=== PATIENT | male | born 1955 | race Caucasian/White ===

== ENCOUNTER 2020-02-05 21:44 | Emergency (ER) | payer OTHER, SELFPAY ==
[2020-02-05 21:47] VITALS: BP 160/101; PULSE 80; RESP 24; TEMP 36.6; O2SAT 99; BMI 37.2
[2020-02-05 22:16] VITALS: BP 145/89; PULSE 74; RESP 16; O2SAT 100
--- NOTE | 2020-02-05 22:22 | XRR_ITS ---
PROCEDURE INFORMATION: Exam: XR Chest, 1 View Exam date and time: 02/05/2020 10:41 PM Age: 64 years old Clinical indication: Angina; Additional info: Chest pain TECHNIQUE: Imaging protocol: XR of the chest Views: 1 view. COMPARISON: No relevant prior studies available. FINDINGS: Lungs: Unremarkable. No consolidation. Pleural space: Unremarkable. No pleural effusion. No pneumothorax. Heart/Mediastinum: Unremarkable. No cardiomegaly. Bones/joints: Unremarkable. XR/XR chest 1V portable [id number] IMPRESSION: No acute findings.
[2020-02-05 22:32] LABS: Basophils # 0.1 10^3/uL (0.0-0.1); Basophils % 0.7 %; Eosinophils # 0.2 10^3/uL (0.0-0.8); Eosinophils % 1.6 %; Hematocrit 45.9 % (42.0-52.0); Hemoglobin 15.8 g/dL (11.7-16.6); Lymphocytes # 1.9 10^3/uL (0.8-4.8); Lymphocytes % 19.7 %; Mean Corpuscular HGB Conc 34.4 g/dL (30.0-36.0); Mean Corpuscular Hemoglobin 29.8 pg (28.0-34.0); Mean Corpuscular Volume 86.6 fL (80-94); Mean Platelet Volume 10.9 fL (7.4-10.4); Monocytes # 0.5 10^3/uL (0.2-0.9); Monocytes % 5.7 %; Neutrophils # 6.8 10^3/uL (1.8-7.7); Nucleated Red Blood Cells % 0 %; Platelet Count 262 10^3/cmm (130-400); Red Cell Distribution Width 12.5 % (12.1-15.1); White Blood Count 9.5 10^3/uL (4.0-10.0)
[2020-02-05 22:48] LABS: Troponin(5th) Baseline 9 ng/L (0-15)
[2020-02-05 23:03] LABS: Lipase 108 U/L (13-60)
[2020-02-05 23:14] LABS: Alanine Aminotransferase 44 U/L (0-41); Albumin Level 4.7 g/dL (3.5-5.2); Alkaline Phosphatase 65 IU/L (40-130); Anion Gap 22.4 (5-19); Aspartate Amino Transferase 30 U/L (0-40); Blood Urea Nitrogen 15 mg/dL (8-23); Carbon Dioxide 20 mmol/L (22-29); Chloride 94 mmol/L (98-107); Globulin 2.3 g/dL (1.3-4.6); Glucose 330 mg/dL (65-115); NT Pro B Type Natriuretic Pept 91 pg/mL (0-125); Osmolality Calculated 285 mOsm/kg (285-295); Potassium 3.4 mmol/L (3.5-5.1); Sodium 133 mmol/L (136-145); Total Bilirubin 0.8 mg/dL (0.15-1.2)
--- NOTE | 2020-02-06 00:22 | ECG_ITS ---
Measurements Intervals [place] Rate: 73 P: 46 WA: 164 QRS: 152 QRSD: 125 T: -18 QT: 414 QTc: 459 SINUS RHYTHM POSSIBLE RIGHT VENTRICULAR HYPERTROPHY [SOME/ALL OF: PROMINENT R IN V1, LATE CORTES TRANSITION, RAD, AHYDE, SSS] MODERATE ST DEPRESSION [0.05+ mV ST DEPRESSION] ABNORMAL QRS-T ANGLE [QRS-T AXIS DIFFERENCE > 60] No previous ECG available for comparison Electronically Signed On 02-06-2020 15:18:19 CDT by Lucy Hayes M.D. [email or web address]
--- NOTE | 2020-02-06 00:30 | ED_ITS ---
Documented by User: Jono Ramirez MD, MSM 02/06/20 00:34 HPI - General Adult General: Chief complaint: General Medical Stated complaint: heart racing Time Seen by Provider: 02/05/20 22:22 Source: patient Mode of arrival: ambulatory Limitations: no limitations History of Present Illness: HPI narrative: Patient symptoms started this morning with a headache that he said felt like a migraine. Headache was in the left temporal region. The headache caused him to be nauseous and he vomited about 3 times. After vomiting headache resolved. He has mild chest pressure. He also said he checked his blood pressure several times and kept fluctuating so he is here to be evaluated Associated symptoms: Reports chest pain; Deny dyspnea, headache(s), nausea, rash, palpitations or vomiting Review of Systems General: Reports: 10 or more systems reviewed and unremarkable except in HPI and below Const: Denies: fever(s), chills or body aches Eyes: Denies: change in vision or blurry vision ENMT: Denies: throat pain, enlarged tonsils, odynophagia, hoarseness, mouth pain or swelling of lips/tongue Card: Reports: chest pain; Denies: palpitations, irregular heart rhythm, edema or swelling of feet/ankles Resp: Denies: dyspnea, productive cough or non-productive cough GI: Denies: abdominal pain, nausea or vomiting : Denies: flank pain, dysuria, urinary frequency, urinary urgency or urinary hesitancy Musc: Denies: neck pain, back pain or extremity swelling Skin/Breast: Denies: rash, pruritus or erythema Neuro: Denies: headache(s), numbness in extremities or weakness in extremities Endo: Denies: polyuria, polydipsia or tired all the time [facility] ED PFSH: Social History Smoking and tobacco status: never smoked Physical Exam Const: COMMON NORMALS: no acute distress, average body habitus, patient oriented x3, no limitations, healthy appearing, alert and well nourished HENMT: COMMON NORMALS: normocephalic, atraumatic and moist oral mucous membranes HEAD & SCALP: normocephalic and atraumatic Neck/C-Spine: COMMON NORMALS: full ROM, supple, no meningeal signs, no JVD and No carotid bruits Resp: COMMON NORMALS: normal respiratory effort, No retractions, No use of accessory muscles, clear to auscultation bilaterally and percussion normal AUSCULTATION: clear to auscultation bilaterally PERCUSSION: percussion normal Cardio: COMMON NORMALS: no JVD, regular rate, regular rhythm, S1 normal heart sound present, S2 normal heart sound present, No gallops present (Cardio), No clicks present (Cardio), No murmurs present (Cardio), No rub (Cardio) and Peripheral pulses 2+ throughout RATE: regular rate RHYTHM: regular rhythm HEART SOUNDS: S1 normal heart sound present and S2 normal heart sound present PERIPHERAL PULSES: Peripheral pulses 2+ throughout GI: COMMON NORMALS: Normal to inspection, nondistended, normoactive bowel sounds present, Soft to palpation, non-tender, No hepatosplenomegaly present, no masses and no bruits PALPATION: Yes Soft to palpation and Yes No hepatosplenomegaly present : COMMON NORMALS: Yes no CVA tenderness BLADDER/KIDNEY EXAM: Yes no CVA tenderness Back/Pelvis: COMMON NORMALS: no CVA tenderness Extremity: COMMON NORMALS: normal to inspection, full ROM, capillary refill normal, no calf tenderness and no pedal edema Neuro: COMMON NORMALS: patient oriented x3 SENSORIUM/ORIENTATION: Yes alert MENINGEAL SIGNS: Yes no meningeal signs Skin: COMMON NORMALS: no rashes or lesions noted, no wounds, turgor normal, no jaundice, no petechiae and no mottling GENERAL SKIN EXAM: no rashes or lesions noted and turgor normal Course Vital Signs: Vital signs: Vital Signs Temperature 97.8 F 02/05/20 21:47 Pulse Rate 72 02/06/20 02:48 Respiratory Rate 16 02/06/20 02:48 Blood Pressure 136/77 02/06/20 02:48 Pulse Oximetry 98 02/06/20 02:48 MDM - General Adult Lab Data: Labs: Lab Results 02/05/20 02/05/20 02/05/20 Range/Units 22:10 22:10 22:10 WBC 9.5 (4.0-10.0) 10^3/ uL RBC 5.30 (4.1-5.3) 10^6/u L Hgb 15.8 (11.7-16.6) g/dL Hct 45.9 (42.0-52.0) % MCV 86.6 (80-94) fL MCH 29.8 (28.0-34.0) pg MCHC 34.4 (30.0-36.0) g/dL RDW 12.5 (12.1-15.1) % Plt Count 262 (130-400) 10^3/c mm MPV 10.9 H (7.4-10.4) fL Neut % (Auto) 72.0 % Lymph % (Auto) 19.7 % [place] % (Auto) 5.7 % Eos % (Auto) 1.6 % Baso % (Auto) 0.7 % Neut # (Auto) 6.8 (1.8-7.7) 10^3/u L Lymph # (Auto) 1.9 (0.8-4.8) 10^3/u L [place] # (Auto) 0.5 (0.2-0.9) 10^3/u L Eos # (Auto) 0.2 (0.0-0.8) 10^3/u L Baso # (Auto) 0.1 (0.0-0.1) 10^3/u L Nucleated RBC % (a uto) 0 % Nucleated RBCs # 0.0 /100WBC Sodium 133 L (136-145) mmol/L Potassium 3.4 L (3.5-5.1) mmol/L Chloride 94 L (98-107) mmol/L Carbon Dioxide 20 L (22-29) mmol/L Anion Gap 22.4 H (5-19) BUN 15 (8-23) mg/dL Creatinine 0.8 (0.7-1.2) mg/dL GFR Calculation 98.0 (90-130) mL/min Glucose 330 H (65-115) mg/dL Calculated Osmolal ity 285 (285-295) mOsm/k g Calcium 10.0 (8.5-10.5) mg/dL Total Bilirubin 0.8 (0.15-1.2) mg/dL AST 30 (0-40) U/L ALT 44 H (0-41) U/L Alkaline Phosphata se 65 (40-130) IU/L Troponin T Baselin e 9 (0-15) ng/L Troponin T 120 Min [place] (0-15) ng/L Delta Troponin T (0-10) ABS# NT-Pro-B Natriuret Pep 91 (0-125) pg/mL Total Protein 7.0 (6.6-8.7) g/dL Albumin 4.7 (3.5-5.2) g/dL Globulin 2.3 (1.3-4.6) g/dL Lipase (13-60) U/L 02/05/20 02/06/20 Range/Units 22:10 00:28 WBC (4.0-10.0) 10^3/ uL RBC (4.1-5.3) 10^6/u L Hgb (11.7-16.6) g/dL Hct (42.0-52.0) % MCV (80-94) fL MCH (28.0-34.0) pg MCHC (30.0-36.0) g/dL RDW (12.1-15.1) % Plt Count (130-400) 10^3/c mm MPV (7.4-10.4) fL Neut % (Auto) % Lymph % (Auto) % [place] % (Auto) % Eos % (Auto) % Baso % (Auto) % Neut # (Auto) (1.8-7.7) 10^3/u L Lymph # (Auto) (0.8-4.8) 10^3/u L [place] # (Auto) (0.2-0.9) 10^3/u L Eos # (Auto) (0.0-0.8) 10^3/u L Baso # (Auto) (0.0-0.1) 10^3/u L Nucleated RBC % (a uto) % Nucleated RBCs # /100WBC Sodium (136-145) mmol/L Potassium (3.5-5.1) mmol/L Chloride (98-107) mmol/L Carbon Dioxide (22-29) mmol/L Anion Gap (5-19) BUN (8-23) mg/dL Creatinine (0.7-1.2) mg/dL GFR Calculation (90-130) mL/min Glucose (65-115) mg/dL Calculated Osmolal ity (285-295) mOsm/k g Calcium (8.5-10.5) mg/dL Total Bilirubin (0.15-1.2) mg/dL AST (0-40) U/L ALT (0-41) U/L Alkaline Phosphata se (40-130) IU/L Troponin T Baselin e (0-15) ng/L Troponin T 120 Min [place] 9.51 (0-15) ng/L Delta Troponin T 0.51 (0-10) ABS# NT-Pro-B Natriuret Pep (0-125) pg/mL Total Protein (6.6-8.7) g/dL Albumin (3.5-5.2) g/dL Globulin (1.3-4.6) g/dL Lipase 108 H (13-60) U/L Discharge Plan Discharge Patient Disposition: Home, Self-Care Clinical Impression: Headache Qualifiers: Headache type: unspecified Headache chronicity pattern: acute headache Intractability: not intractable Qualified Code(s): R51 - Headache Chest pain Qualifiers: Chest pain type: unspecified Qualified Code(s): R07.9 - Chest pain, unspecified Condition: Stable Prescriptions: No Action Unable to Assess RF: 0 Discharge Orders: Discharge Order (Routine); Ordered 02/06/20 Ordered By: Nguyễn Hayden Referrals: BLANCA GALO DO [Primary Care Provider] - 4-7 days Discharge Diet: Usual diet Discharge Activity: Increase activity as tolerated Patient Instructions: Chest Pain (ED), Acute Headache (ED) Discharge Date/Time: 02/06/20 02:50 Coding Level of Care Code ED Network Specialist for Chg Fwd Exam Comprehensive Documented by User: Nguyễn Hayden DO 02/06/20 17:22 HPI - General Adult General: Chief complaint: General Medical Stated complaint: heart racing Time Seen by Provider: 02/05/20 22:22 PFSH ED PFSH: Social History Smoking and tobacco status: never smoked Course Vital Signs: Vital signs: Vital Signs Temperature 97.8 F 02/05/20 21:47 Pulse Rate 72 02/06/20 02:48 Respiratory Rate 16 02/06/20 02:48 Blood Pressure 136/77 02/06/20 02:48 Pulse Oximetry 98 02/06/20 02:48 MDM - General Adult MDM Narrative: Medical decision making narrative: Old male who presents with multiple symptoms. He was checked out to me by Dr. Ramirez. His headache and other symptoms are resolved. He was left with a dull chest pressure/epigastric pressure. His first troponin was negative. His second troponin was negative. His EKG did not change either. With improvement in his symptoms, he will be allowed discharge. Lab Data: Labs: Lab Results 02/05/20 02/05/20 02/05/20 Range/Units 22:10 22:10 22:10 WBC 9.5 (4.0-10.0) 10^3/ uL RBC 5.30 (4.1-5.3) 10^6/u L Hgb 15.8 (11.7-16.6) g/dL Hct 45.9 (42.0-52.0) % MCV 86.6 (80-94) fL MCH 29.8 (28.0-34.0) pg MCHC 34.4 (30.0-36.0) g/dL RDW 12.5 (12.1-15.1) % Plt Count 262 (130-400) 10^3/c mm MPV 10.9 H (7.4-10.4) fL Neut % (Auto) 72.0 % Lymph % (Auto) 19.7 % [place] % (Auto) 5.7 % Eos % (Auto) 1.6 % Baso % (Auto) 0.7 % Neut # (Auto) 6.8 (1.8-7.7) 10^3/u L Lymph # (Auto) 1.9 (0.8-4.8) 10^3/u L [place] # (Auto) 0.5 (0.2-0.9) 10^3/u L Eos # (Auto) 0.2 (0.0-0.8) 10^3/u L Baso # (Auto) 0.1 (0.0-0.1) 10^3/u L Nucleated RBC % (a uto) 0 % Nucleated RBCs # 0.0 /100WBC Sodium 133 L (136-145) mmol/L Potassium 3.4 L (3.5-5.1) mmol/L Chloride 94 L (98-107) mmol/L Carbon Dioxide 20 L (22-29) mmol/L Anion Gap 22.4 H (5-19) BUN 15 (8-23) mg/dL Creatinine 0.8 (0.7-1.2) mg/dL GFR Calculation 98.0 (90-130) mL/min Glucose 330 H (65-115) mg/dL Calculated Osmolal ity 285 (285-295) mOsm/k g Calcium 10.0 (8.5-10.5) mg/dL Total Bilirubin 0.8 (0.15-1.2) mg/dL AST 30 (0-40) U/L ALT 44 H (0-41) U/L Alkaline Phosphata se 65 (40-130) IU/L Troponin T Baselin e 9 (0-15) ng/L Troponin T 120 Min [place] (0-15) ng/L Delta Troponin T (0-10) ABS# NT-Pro-B Natriuret Pep 91 (0-125) pg/mL Total Protein 7.0 (6.6-8.7) g/dL Albumin 4.7 (3.5-5.2) g/dL Globulin 2.3 (1.3-4.6) g/dL Lipase (13-60) U/L 02/05/20 02/06/20 Range/Units 22:10 00:28 WBC (4.0-10.0) 10^3/ uL RBC (4.1-5.3) 10^6/u L Hgb (11.7-16.6) g/dL Hct (42.0-52.0) % MCV (80-94) fL MCH (28.0-34.0) pg MCHC (30.0-36.0) g/dL RDW (12.1-15.1) % Plt Count (130-400) 10^3/c mm MPV (7.4-10.4) fL Neut % (Auto) % Lymph % (Auto) % [place] % (Auto) % Eos % (Auto) % Baso % (Auto) % Neut # (Auto) (1.8-7.7) 10^3/u L Lymph # (Auto) (0.8-4.8) 10^3/u L [place] # (Auto) (0.2-0.9) 10^3/u L Eos # (Auto) (0.0-0.8) 10^3/u L Baso # (Auto) (0.0-0.1) 10^3/u L Nucleated RBC % (a uto) % Nucleated RBCs # /100WBC Sodium (136-145) mmol/L Potassium (3.5-5.1) mmol/L Chloride (98-107) mmol/L Carbon Dioxide (22-29) mmol/L Anion Gap (5-19) BUN (8-23) mg/dL Creatinine (0.7-1.2) mg/dL GFR Calculation (90-130) mL/min Glucose (65-115) mg/dL Calculated Osmolal ity (285-295) mOsm/k g Calcium (8.5-10.5) mg/dL Total Bilirubin (0.15-1.2) mg/dL AST (0-40) U/L ALT (0-41) U/L Alkaline Phosphata se (40-130) IU/L Troponin T Baselin e (0-15) ng/L Troponin T 120 Min [place] 9.51 (0-15) ng/L Delta Troponin T 0.51 (0-10) ABS# NT-Pro-B Natriuret Pep (0-125) pg/mL Total Protein (6.6-8.7) g/dL Albumin (3.5-5.2) g/dL Globulin (1.3-4.6) g/dL Lipase 108 H (13-60) U/L Discharge Plan Discharge Patient Disposition: Home, Self-Care Clinical Impression: Headache Qualifiers: Headache type: unspecified Headache chronicity pattern: acute headache Intractability: not intractable Qualified Code(s): R51 - Headache Chest pain Qualifiers: Chest pain type: unspecified Qualified Code(s): R07.9 - Chest pain, unspecified Condition: Stable Prescriptions: No Action Unable to Assess RF: 0 Discharge Orders: Discharge Order (Routine); Ordered 02/06/20 Ordered By: Nguyễn Hayden Referrals: BLANCA GALO DO [Primary Care Provider] - 4-7 days Discharge Diet: Usual diet Discharge Activity: Increase activity as tolerated Patient Instructions: Chest Pain (ED), Acute Headache (ED) Discharge Date/Time: 02/06/20 02:50 Coding Level of Care Code ED Network Specialist for Chg Fwd Exam Comprehensive
[2020-02-06 01:00] VITALS: BP 133/80; PULSE 74; RESP 16; O2SAT 98
[2020-02-06 01:07] LABS: Troponin 5 2HR 9.51 ng/L (0-15); Troponin 5 2HR Delta 0.51 ABS# (0-10)
[2020-02-06 02:00] VITALS: BP 138/80; PULSE 70; RESP 16; O2SAT 97
[2020-02-06 02:48] VITALS: BP 136/77; PULSE 72; RESP 16; O2SAT 98
== END 2020-02-06 02:50 | disposition home or self-care (01) ==
PROVIDERS: Family Medicine; Emergency Provider Emergency Medicine; PCP Internal Medicine
DX: R51 Headache (principal); R07.9 Chest pain, unspecified
CPT/HCPCS: 12345; 71045; 80053; 83690; 83880; 84484; 85025; 93005; 99283; 99284

== ENCOUNTER → 2021-03-24 12:42 | Outpatient (BNVA) | payer OTHER, SELFPAY | PROVIDERS: PCP Internal Medicine; Visit Provider Nurse Practitioner | DX: G31.84 Mild cognitive impairment of uncertain or unknown etiology (principal); F41.9 Anxiety disorder, unspecified | CPT/HCPCS: 96116; 99204 ==

== ENCOUNTER 2021-03-24 14:33 | Outpatient (CLI) | payer OTHER, SELFPAY ==
[2021-03-24 16:06] LABS: Vitamin B12 822 pg/mL (232-1245)
[2021-03-24 16:27] LABS: Rapid Plasma Reagin Syphilis Nonreactive (Nonreactive); Thyroid Stimulating Hormone 1.51 uIU/mL (0.27-4.20)
[2021-03-24 18:31] LABS: Erythrocyte Sedimentation Rate 9 mm/hr (0-10)
[2021-03-25 19:24] LABS: Folate Level 14.9 ng/mL (4.5-32.2)
[2021-03-27 10:58] LABS: Lymes IGG WB <0.90 index
[2021-03-28 08:58] LABS: Methylmalonic Acid 226 nmol/L (87-318)
== END 2021-03-24 14:34 | disposition home or self-care (01) ==
PROVIDERS: PCP Internal Medicine; Visit Provider Nurse Practitioner
DX: G31.84 Mild cognitive impairment of uncertain or unknown etiology (principal)
CPT/HCPCS: 36415; 82607; 82746; 83921; 84260; 84443; 85651; 86140; 86431; 86592; 86617

== ENCOUNTER 2021-07-14 17:04 | Emergency (ER) | payer OTHER, SELFPAY ==
--- NOTE | 2021-07-14 17:37 | CTR_ITS ---
PROCEDURE INFORMATION: Exam: CT Head Without Contrast Exam date and time: 07/14/2021 5:37 PM Age: 66 years old Clinical indication: Injury or trauma; Blunt trauma (contusions or hematomas) and laceration; Without loss of consciousness; Without residual foreign body; Scalp; Patient HX: PT was pulling a t post out of the ground and was hit on top of the head - denies loc has lac to top of head; Additional info: Head injury TECHNIQUE: Imaging protocol: Computed tomography of the head without contrast. Radiation optimization: All CT scans at this facility use at least one of these dose optimization techniques: automated exposure control; mA and/or kV adjustment per patient size (includes targeted exams where dose is matched to clinical indication); or iterative reconstruction. COMPARISON: No relevant prior studies available. RADIATION DOSE METRICS: Total DLP (mGy-cm): 1042.93 FINDINGS: Brain: No hemorrhage. Unremarkable white matter. No mass effect. Cerebral ventricles: No ventriculomegaly. Paranasal sinuses: Mild bilateral ethmoid sinusitis is appreciated Mastoid air cells: Visualized mastoid air cells are well aerated. Bones/joints: Unremarkable. No acute fracture. Soft tissues: Mild soft tissue swelling and a tiny laceration are present in the right frontal scalp CT/CT head wo con* [id number] IMPRESSION: No acute intracranial abnormality. Mild sinusitis. Radiation Dose CTDIVOL = (mGy): DLP = 1042.93 (mGy-cm)
[2021-07-14 17:38] VITALS: BP 162/92; PULSE 60; RESP 16; TEMP 36.8; O2SAT 95
--- NOTE | 2021-07-14 20:26 | W.ED.HEATRA ---
HPI - Head Injury General: Chief complaint: Head Injury Stated complaint: HEAD INJURY/SENT FROM [facility] Time Seen by Provider: 07/14/21 20:26 History of Present Illness: HPI Narrative: 66-year-old male patient comes over to the ER for evaluation of scalp injury. Patient reports he was working on some fencing when a board came back and hit him across the top of his head. Patient denies any loss of consciousness. Patient appears well. Patient is alert oriented responds appropriate to questions. Patient appears in mild pain. Review of Systems General: Reports: 10 or more systems reviewed and unremarkable except in HPI and below Skin/Breast: Reports: other (Head and scalp injury) [facility]: Medical History (Updated 07/14/21 @ 20:43 by DANNIELLE Weinstein) Mild cognitive impairment Social History Smoking and tobacco status: never smoked History of recent travel: No Physical Exam Const: COMMON NORMALS: no acute distress and patient oriented x3 GENERAL APPEARANCE: cooperative HENMT: COMMON NORMALS: normocephalic, TM's normal bilaterally and Normal external nose present HEAD & SCALP: normocephalic and other (3 cm superficial laceration to the frontal scalp) NOSE: Normal external nose present TYMPANIC MEMBRANE: TM's normal bilaterally MOUTH: Normal oral and palatal mucosa present THROAT: posterior oropharynx normal Eye: GENERAL EYE: appearance normal, both eyes and all related structures Neck/C-Spine: COMMON NORMALS: full ROM Chest: COMMONS NORMALS: normal inspection of the chest Resp: COMMON NORMALS: normal respiratory effort EFFORT & INSPECTION: Yes able to speak in complete sentences Cardio: COMMON NORMALS: regular rate and regular rhythm RATE: regular rate RHYTHM: regular rhythm GI: COMMON NORMALS: non-tender Back/Pelvis: COMMON NORMALS: thoracic and lumbar spine normal to inspection Extremity: COMMON NORMALS: normal to inspection Neuro: COMMON NORMALS: patient oriented x3 and moves all extremities Psych: COMMON NORMALS: mental status grossly normal and cooperative Skin: COMMON NORMALS: no rashes or lesions noted GENERAL SKIN EXAM: no rashes or lesions noted Course Vital Signs: Vital signs: Vital Signs Temperature 98.2 F 07/14/21 17:38 Pulse Rate 60 07/14/21 17:38 Respiratory Rate 16 07/14/21 17:38 Blood Pressure 162/92 07/14/21 17:38 Pulse Oximetry 95 07/14/21 17:38 MDM - Head Injury MDM Narrative: Medical decision making narrative: Absent for evaluation of head injury. On exam patient has no focal neural deficits. Patient has a 3 cm vertical frontal superficial laceration to the scalp. Patient ambulates without difficulty. Patient moves all extremities well. Patient denies superior headache. Vital signs are normal. Differential diagnosis includes but not limited to fracture of the skull, concussion, intracranial bleeding, scalp laceration. CT of the head was negative for any fracture or intracranial bleeding. Reviewed exam with patient and spouse with recommendations for dressing and monitoring site for signs of infection. Patient and spouse reported understanding and agreed to plan. Reviewed post head injury instructions with patient and spouse. They reported understanding. Discharge Plan Discharge Patient Disposition: Home Clinical Impression: Head injury Qualifiers: Encounter type: initial encounter Qualified Code(s): S09.90XA - Unspecified injury of head, initial encounter Superficial laceration of scalp Qualifiers: Encounter type: initial encounter Qualified Code(s): S01.01XA - Laceration without foreign body of scalp, initial encounter Condition: Stable Prescriptions: No Action losartan 100 mg tablet 100 mg PO DAILY RF: 0 metformin 500 mg tablet 500 mg PO BID RF: 0 metoprolol succinate 100 mg tablet extended release 24 hr 100 mg PO BID RF: 0 Trulicity 1.5 mg/0.5 mL pen injector SUBCUT RF: 0 multivitamin Tablet 1 tab PO DAILY RF: 0 amlodipine 2.5 mg tablet 2.5 mg PO BID RF: 0 hydrochlorothiazide 25 mg tablet 25 mg PO DAILY RF: 0 pantoprazole 40 mg tablet,delayed release (DR/EC) 40 mg PO DAILY RF: 0 omega-3 fatty acids [Fish Oil Concentrate] 1,000 mg capsule 1,000 mg PO DAILY RF: 0 red yeast rice 600 mg capsule 600 mg PO DAILY RF: 0 Discharge Orders: Discharge ED (Routine); Ordered 07/14/21 Ordered By: Silver Elmore Referrals: Deja Wells DO [Primary Care Provider] - Discharge Diet: Usual diet Discharge Activity: Increase activity as tolerated Patient Instructions: Head Injury (ED), Opioid Safety Activity Restrictions/Additional Instructions: Activity as tolerated. Drink plenty of water. Use acetaminophen or ibuprofen for pain. Follow-up with primary care in 3 days for recheck. Return to the ER for worsening symptoms such as severe headache that you are unable to control, persistent nausea and vomiting, or new concerns. Keep wound clean and dry for the next 48 hours. After that gently wash the wound with mild soap and water and dry thoroughly. Monitor wound for signs of infection such as increased redness, heat, or purulent drainage. Coding Level of Care Code ED [employer] Consultant for Oscar Aguayo
[2021-07-14] MEDS: tetanus-dipt-pertussis 0.5 mL SDV IM (20:55)
== END 2021-07-14 20:57 | disposition home or self-care (01) ==
PROVIDERS: Emergency Provider Nurse Practitioner Family; PCP Family Medicine
DX: S01.01XA Laceration without foreign body of scalp, initial encounter (principal); S09.90XA Unspecified injury of head, initial encounter; Z79.84 Long term (current) use of oral hypoglycemic drugs; W20.8XXA Other cause of strike by thrown, projected or falling object, initial encounter; Z23 Encounter for immunization
CPT/HCPCS: 70450; 90471; 90715; 99283

== ENCOUNTER → 2022-03-28 09:42 | Outpatient (BNVA) | payer MEDICARE, SELFPAY | PROVIDERS: PCP Family Medicine; Visit Provider Surgery | DX: K92.1 Melena (principal) | CPT/HCPCS: 99203 ==

== ENCOUNTER 2022-06-15 05:58 | Day surgery (SDC) | payer MEDICARE, SELFPAY ==
[2022-06-12 10:09] VITALS: BMI 34.7
[2022-06-15 06:23] VITALS: BP 132/79; PULSE 73; RESP 18; TEMP 36.2; O2SAT 97
[2022-06-15] MEDS: sodium chloride 0.9% 1,000 ML 30 ML IV (06:28)
[2022-06-15 06:32] LABS: Glucose Point of Care 145 mg/dL (70-110)
--- NOTE | 2022-06-15 06:50 | P.ANESASSM_ITS ---
Pre-Anesthetic Assessment Height/Weight: Height 1.75 m Weight 106.594 kg Temp Pulse Resp BP Pulse Ox O2 Del Method 97.1 F L 73 18 132/79 97 06/15/22 06:23 06/15/22 06:23 06/15/22 06:23 06/15/22 06:23 06/15/22 06:23 06/15/22 06:23 Preop Diagnosis: Hematochezia Operation Date: 06/15/22 07:30 Proposed Procedures p Colonoscopy 38505,K92.1(Not Applicable) - Jhonathan Andrew DO Familial anesthetic complications: none Was Beta Isis taken within 24 hours: N/A Last intake: Intake Last Liquid Date 06/14/22 Last Liquid Time 22:30 Last Solid Date 06/13/22 Last Solid Time 20:00 Social Alcohol (1x every few weeks) and No tobacco Airway Submandibular: within normal limits Cervical ROM: within normal limits Mallampati: Class I Dentition: full Pulmonary Sleep Apnea (reports hx of JO-ANN non-compliant) and None reported CV/HEM Hypertension and Myocardial Infarction (EKG indicates possible old NM) 2004- stress test enlarged heart patient unsure of results. None reported Hepatic None reported GI Gastroesophageal Reflux Disease Metabolic Diabetes Mellitus and Hyperlipidemia [facility] [place] None reported Neuropsych None reported Anesthetic Plan ASA status: 3 Anesthesia: MAC Medications/Allergies Home Medications Medication Instructions Recorded Confirmed Last Taken Type amlodipine 2.5 mg tablet 5 mg PO BID 03/24/21 06/12/22 06/15/22 History dulaglutide 1.5 mg/0.5 mL 4.5 mg SUBCUT .WEEKLY 03/24/21 06/15/22 06/12/22 History subcutaneous pen injector (Trulicity) hydrochlorothiazide 25 mg tablet 25 mg PO DAILY 03/24/21 06/12/22 06/14/22 History losartan 100 mg tablet 100 mg PO DAILY 03/24/21 06/12/22 06/14/22 History metoprolol succinate 100 mg 100 mg PO BID 03/24/21 06/12/22 06/15/22 History tablet,extended release 24 hr multivitamin 1 tab PO DAILY 03/24/21 06/12/22 06/14/22 History pantoprazole 40 mg tablet,delayed 40 mg PO DAILY 03/24/21 06/15/22 06/12/22 History release red yeast rice 600 mg capsule 600 mg PO DAILY 03/24/21 06/12/22 06/14/22 History allopurinol 100 mg tablet 100 mg PO DAILY 03/28/22 06/12/22 06/14/22 History metformin 500 mg tablet 850 mg PO BID 03/28/22 06/12/22 06/14/22 History Allergies Allergy/AdvReac Type Severity Reaction Status Date / Time prednisone Allergy Unknown Verified 03/28/22 09:52 Current Medications Generic Name Dose Route Start Last Admin Trade Name Freq PRN Reason Stop Dose Admin Sodium Chloride 1,000 mls @ 30 mls/hr 06/15/22 06:15 06/15/22 06:28 Sodium Chloride 0.9% IV 06/16/22 06:14 30 mls/hr .Q24H TIFFANY Administration PFSH Anesthesia Medical History Mild cognitive impairment Social History Smoking and tobacco status: never smoked History of recent travel: No Data Anesthesia Cardiac Studies: No Data to Display
--- NOTE | 2022-06-15 07:04 | PM.HP ---
Providers/Chief Complaint Primary Care Provider: Howie Santiago MD Chief Complaint: Hematochezia History of Present Illness Julio Penny is a 67 year old male here for colonoscopy Medications/Allergies Home Medications Medication Instructions Recorded Confirmed Last Taken Type amlodipine 2.5 mg tablet 5 mg PO BID 03/24/21 06/12/22 06/15/22 History dulaglutide 1.5 mg/0.5 mL 4.5 mg SUBCUT .WEEKLY 03/24/21 06/15/22 06/12/22 History subcutaneous pen injector (Trulicity) hydrochlorothiazide 25 mg tablet 25 mg PO DAILY 03/24/21 06/12/22 06/14/22 History losartan 100 mg tablet 100 mg PO DAILY 03/24/21 06/12/22 06/14/22 History metoprolol succinate 100 mg 100 mg PO BID 03/24/21 06/12/22 06/15/22 History tablet,extended release 24 hr multivitamin 1 tab PO DAILY 03/24/21 06/12/22 06/14/22 History pantoprazole 40 mg tablet,delayed 40 mg PO DAILY 03/24/21 06/15/22 06/12/22 History release red yeast rice 600 mg capsule 600 mg PO DAILY 03/24/21 06/12/22 06/14/22 History allopurinol 100 mg tablet 100 mg PO DAILY 03/28/22 06/12/22 06/14/22 History metformin 500 mg tablet 850 mg PO BID 03/28/22 06/12/22 06/14/22 History Allergies Allergy/AdvReac Type Severity Reaction Status Date / Time prednisone Allergy Unknown Verified 03/28/22 09:52 PFSH Acute PFSH: Medical History Mild cognitive impairment Social History Smoking and tobacco status: never smoked History of recent travel: No Vitals/I&O/Wt Last Vital Signs Temp 97.1 F L 06/15/22 06:23 Pulse 73 06/15/22 06:23 Resp 18 06/15/22 06:23 BP 132/79 06/15/22 06:23 Pulse Ox 97 06/15/22 06:23 O2 Del Method 06/15/22 06:23 A&P Assessment and plan (1) Hematochezia: Plan Colonoscopy Attestations Medical Necessity Statement*: Home Coding Level of Care Code Acute Oxygen Tank Filler for g Fwd Diagnoses Hematochezia K92.1
[2022-06-15 08:06] VITALS: BP 109/69; PULSE 76; RESP 12; TEMP 36.1; O2SAT 94
[2022-06-15 08:16] VITALS: BP 109/77; PULSE 79; RESP 14; O2SAT 94
[2022-06-15 08:27] VITALS: BP 116/79; PULSE 70; RESP 16; O2SAT 94
--- NOTE | 2022-06-15 13:59 | ANE.PACU2 ---
Inpatient post-anesthesia follow up: Airway intact: Yes Vital signs: Temperature 97 F Pulse Rate 70 Respiratory Rate 16 Blood Pressure 116/79 Pulse Oximetry 94 Oxygen Delivery Me thod Room Air Oxygen Flow Rate Fraction of Inspir ed Oxygen Hydration adequate: Yes Nausea and vomiting: No Pain level: 1 Mental status: Baseline
== END 2022-06-15 08:40 | disposition home or self-care (01) ==
PROVIDERS: PCP Family Medicine; Visit Provider Surgery
PROC: 0DJD8ZZ Inspection of Lower Intestinal Tract, Via Natural or Artificial Opening Endoscopic (ICD-10-PCS; CPT 45378; principal; 2022-06-15 07:30)
DX: K92.1 Melena (principal); K57.30 Diverticulosis of large intestine without perforation or abscess without bleeding; K52.9 Noninfective gastroenteritis and colitis, unspecified; K64.4 Residual hemorrhoidal skin tags; K63.5 Polyp of colon; G47.33 Obstructive sleep apnea (adult) (pediatric); Z91.199 Patient's noncompliance with other medical treatment and regimen due to unspecified reason; I10 Essential (primary) hypertension; I25.2 Old myocardial infarction; K21.9 Gastro-esophageal reflux disease without esophagitis; E11.9 Type 2 diabetes mellitus without complications; E78.5 Hyperlipidemia, unspecified
CPT/HCPCS: 36416; 45380; 45385; 82962; 88305; J2704; J7030

== ENCOUNTER → 2022-06-22 12:00 | Outpatient (BNVA) | payer MEDICARE, SELFPAY | PROVIDERS: PCP Family Medicine; Visit Provider Surgery | DX: K64.4 Residual hemorrhoidal skin tags (principal) | CPT/HCPCS: 99212 ==

== ENCOUNTER 2024-01-09 14:03 | Outpatient (CLI) | payer MEDICARE, SELFPAY ==
--- NOTE | 2024-01-09 14:09 | USCV_ITS ---
Julio Penny Age: 68 Gender: M : 1955 Exam Date: 01/09/2024 14:26 Ordering Phys: Howie Santiago MD Technologist: Jessie Paz Exam Location: [facility] – [place] Indication: sob BP: / HR: 72 Rhythm: Sinus Technical Quality: Adequate MEASUREMENTS (Male / Female) Normal Values 2D ECHO LV Diastolic Diameter PLAX 3.6 cm 4.2 - 5.9 / 3.9 - 5.3 cm IVS Diastolic Thickness 1.4 cm 0.6 - 1.0 / 0.6 - 0.9 cm IVS Systolic Thickness 1.1 cm LVPW Diastolic Thickness 1.4 cm 0.6 - 1.0 / 0.6 - 0.9 cm LVPW Systolic Thickness 1.3 cm LVOT Diameter 2.0 cm LV Ejection Fraction 2D Teich 57.8 % LV Ejection Fraction MOD 2C 63.1 % LV Ejection Fraction 2C AL 66.5 % LA Diameter 2.8 cm RA Systolic Volume 4C AL 15.1 ml RA Systolic Volume 4C MOD 14.4 ml LA Sys Volume AL 27.9 cm cubed LA Sys Volume Index AL 12.4 cm cubed/m squared Aorta at Sinotubular Diameter 2.9 cm IVC Diameter 1.3 cm M-MODE LA Ao Ratio MM 1.2 AV Cusp Separation MM 2.2 cm DOPPLER AV Peak Velocity 128.0 cm/s LVOT Peak Velocity 97.0 cm/s AV Area Cont Eq vti 2.6 cm squared AV Area Cont Eq pk 2.5 cm squared MV Area PHT 5.0 cm squared Mitral E to A Ratio 0.7 TV Peak Velocity 214.5 cm/s TR Peak Velocity 213.0 cm/s TR Peak Gradient 18.1 mmHg TR Mean Velocity 183.0 cm/s TR Mean Gradient 14.9 mmHg TR Velocity Time Integral 72.4 cm TV Peak E Velocity 46.0 cm/s Right Atrial Pressure 3.0 mmHg Pulmonary Artery Systolic Pressu 21.1 mmHg PV Peak Velocity 81.0 cm/s FINDINGS Left Ventricle Normal left ventricular size and systolic function, EF 66%.mild left ventricular hypertrophy. No regional wall motion abnormalities. Grade I/IV diastolic dysfunction (abnormal relaxation filling pattern), normal to mildly elevated filling pressures. Right Ventricle The right ventricle is normal in size and function. Right Atrium The right atrium is normal in size. Left Atrium The left atrium is normal in size. Mitral Valve No gross abnormalities noted Aortic Valve No gross abnormalities noted. Appears to be tricuspid Tricuspid Valve No gross abnormalities noted Pulmonic Valve No gross abnormalities noted Pericardium Normal pericardium without effusion. Aorta Normal ascending aorta dimension. IVC The inferior vena cava appears normal. CONCLUSIONS Normal left ventricular size and systolic function, EF 66%.mild left ventricular hypertrophy. No regional wall motion abnormalities. Grade I/IV diastolic dysfunction (abnormal relaxation filling pattern), normal to mildly elevated filling pressures. Normal cardiac chamber sizes. No significant stenotic or regurgitant lesions. There is no pericardial effusion. There are no intracardiac masses. No similar previous studies are available for comparison Dr Lucy Hayes MD FACC (Electronically Signed) Final Date: 11 Jan 2024 10:26 S
== END 2024-01-09 14:04 | disposition home or self-care (01) ==
LOC: RAD 14:04
PROVIDERS: PCP Family Medicine; Visit Provider Family Medicine
DX: I42.1 Obstructive hypertrophic cardiomyopathy (principal)
CPT/HCPCS: 93306

== ENCOUNTER → 2024-04-08 11:06 | Outpatient (BNVA) | payer MEDICARE, SELFPAY | PROVIDERS: PCP Family Medicine; Referring Provider Family Medicine; Visit Provider Internal Medicine Cardiovascular Disease | DX: R07.9 Chest pain, unspecified (principal); I42.2 Other hypertrophic cardiomyopathy; I10 Essential (primary) hypertension; R00.1 Bradycardia, unspecified; I45.9 Conduction disorder, unspecified | CPT/HCPCS: 93005; 99204 ==

== ENCOUNTER → 2024-06-24 12:43 | Outpatient (BNVA) | payer MEDICARE, SELFPAY | PROVIDERS: PCP Family Medicine; Referring Provider Family Medicine; Visit Provider Surgery | DX: K21.9 Gastro-esophageal reflux disease without esophagitis (principal) | CPT/HCPCS: 99203; 99214 ==

== ENCOUNTER 2024-06-27 15:23 | Emergency (ER) | payer MEDICARE, SELFPAY ==
[2024-06-27 15:32] VITALS: BP 127/85; PULSE 79; RESP 17; TEMP 36.8; O2SAT 95; BMI 33.2
--- NOTE | 2024-06-27 16:24 | XRR_ITS ---
PROCEDURE INFORMATION: Exam: XR Left Hand Exam date and time: 06/27/2024 4:59 PM Age: 69 years old Clinical indication: Pain; Hand; Left; Patient HX: Small puncture wound to end of lt thumb; Possible foreign body from nail gun per PT TECHNIQUE: Imaging protocol: Radiologic exam of the left hand. Views: 3 or more views. COMPARISON: No relevant prior studies available. FINDINGS: Bones/joints: Normal. Soft tissues: Normal. No radiopaque foreign body. XR/XR hand LT min 3V* [id number] IMPRESSION: No acute findings. No radiopaque foreign body.
--- NOTE | 2024-06-27 17:39 | W.ED.WOUNDLC ---
HPI - Wound/Laceration General: Chief Complaint: Wound/Laceration Stated Complaint: pucture wond left hand Time Seen by Provider: 06/27/24 17:28 History of Present Illness: 69-year-old male was working at home using an 18-gauge Froy Chavo he felt a sharp sensation in his left thumb he thinks he may have gotten a Froy in the finger. He also felt sensations left index finger with there is only a small superficial wound there is no evidence of active bleeding no palpable foreign body. Patient states his tetanus is up-to-date Related Data Home Medications Medication Instructions Recorded Confirmed amlodipine 2.5 mg tablet 5 mg PO BID 03/24/21 06/24/24 hydrochlorothiazide 25 mg tablet 25 mg PO DAILY 03/24/21 06/24/24 losartan 100 mg tablet 100 mg PO DAILY 03/24/21 06/24/24 multivitamin 1 tab PO DAILY 03/24/21 06/24/24 pantoprazole 40 mg tablet,delayed 40 mg PO DAILY 03/24/21 06/24/24 release allopurinol 100 mg tablet 300 mg PO DAILY 04/08/24 06/24/24 epinephrine 0.3 mg/0.3 mL 0.3 mg IM Q4H PRN 04/08/24 06/24/24 injection, auto-injector (EpiPen) hydroxyzine HCl 25 mg tablet 12.5 mg PO QID PRN 04/08/24 06/24/24 ibuprofen-diphenhydramine citrate PO 04/08/24 06/24/24 200 mg-38 mg tablet (Ibuprofen PM) loratadine 10 mg tablet (Allergy 10 mg PO DAILY 04/08/24 06/24/24 Relief (loratadine)) semaglutide 2 mg/dose (8 mg/3 mL) mg SUBCUT 04/08/24 06/24/24 subcutaneous pen injector (Ozempic) Previous Rx's Medication Instructions Recorded hydrocortisone 2.5 % topical cream 1 applic KS QID 10 days #30 grams 06/15/22 with perineal applicator (Anusol-HC) metoprolol succinate 25 mg 25 mg PO DAILY #45 tabs 04/08/24 tablet,extended release 24 hr Allergies Allergy/AdvReac Type Severity Reaction Status Date / Time metformin Allergy Severe Unknown Verified 06/24/24 12:53 Alpha-Gal Allergy ADR-Abdominal Verified 06/24/24 13:00 (Yjdusebzw-Xcpxl-7,3-Gala Pain prednisone Allergy Unknown Verified 06/24/24 12:53 [facility] ED PFSH: Medical History (Updated 06/27/24 @ 17:45 by Ibrahima Bejarano DO) Mild cognitive impairment Surgical History (Updated 06/24/24 @ 13:05 by MOSHE Escobar) Hx of colonoscopy 06/15/22 Family History Mother Diabetes Psychiatric illness Father Psychiatric illness Social History Smoking and tobacco/nicotine status: never used tobacco/nicotine Physical Exam Narrative: EXAM NARRATIVE: Examination of the left hand there is no retained foreign bodies there is a small puncture wound on the finger pad of the left thumb no other abnormalities no subcutaneous emphysema. On the left index finger on the dorsal portion at the mid phalanx there is a small superficial puncture wound that does not appear to go through the skin. Course Vital Signs: Vital signs: Vital Signs Temperature 98.3 F 06/27/24 15:32 Pulse Rate 79 06/27/24 15:32 Respiratory Rate 17 06/27/24 15:32 Blood Pressure 127/85 06/27/24 15:32 Pulse Oximetry 95 06/27/24 15:32 Oxygen Delivery Me thod Room Air 06/27/24 15:32 MDM - Wound/Laceration Medical Decision Making X-ray reviewed no foreign metallic foreign bodies noted no subcutaneous air injected. Suspect he may have been injured by the nail tip as it came to that would but there is no sign of actual injection into the soft tissue can use topical antibiotic ointment as needed [id number] follow-up as needed. Patient states his tetanus is up-to-date XR interpretation done by ED provider, pending radiology final review Discharge Plan Discharge Patient Disposition: Home Clinical Impression: Injury of finger of left hand by nail gun Condition: Stable Prescriptions: No Action losartan 100 mg tablet 100 mg PO DAILY multivitamin Tablet 1 tab PO DAILY amlodipine 2.5 mg tablet 5 mg PO BID hydrochlorothiazide 25 mg tablet 25 mg PO DAILY pantoprazole 40 mg tablet,delayed release (DR/EC) 40 mg PO DAILY allopurinol 100 mg tablet 300 mg PO DAILY Ozempic 2 mg/dose (8 mg/3 mL) pen injector SUBCUT Rx Instructions: 2mg once weekly epinephrine [EpiPen] 0.3 mg/0.3 mL auto-injector 0.3 mg IM Q4H PRN loratadine [Allergy Relief (loratadine)] 10 mg tablet 10 mg PO DAILY hydroxyzine HCl 25 mg tablet 12.5 mg PO QID PRN Ibuprofen PM 200-38 mg tablet PO Rx Instructions: 2 tabs q hs as needed metoprolol succinate 25 mg tablet extended release 24 hr 25 mg PO DAILY Qty: 45 3RF Rx Instructions: take 1/2 tab daily Anusol-HC 2.5 % cream with perineal applicator 1 applic KS QID 10 Days Qty: 30 1RF Rx Instructions: May repeat for another 10 days if no resolution Discharge Orders: Discharge ED (Routine); Ordered 06/27/24 Ordered By: Ibrahima Bejarano Referrals: Howie Santiago MD [Primary Care Provider] - Discharge Diet: Usual diet Discharge Activity: Resume usual activity Patient Instructions: Opioid Safety, Pain Management Activity Restrictions/Additional Instructions: [facility]. It is very important that you follow up as instructed or that you return to the Emergency Department should you have concerns or if your condition changes or worsens in any way. You are seen in the emergency room after an injury from nail gun. There is a puncture wound on his thumb there is no evidence of retained foreign body on the x-ray. Exam is otherwise unremarkable. You had stated that your tetanus is up-to-date. You can use topical antibiotic ointment on the wound if needed. Coding Level of Care Code ED Director Of Quality Improvement for Oscar Aguayo
[2024-06-27 17:53] VITALS: BP 131/71; PULSE 77; O2SAT 97
== END 2024-06-27 17:54 | disposition home or self-care (01) ==
PROVIDERS: Emergency Provider Family Medicine; PCP Family Medicine
DX: S69.92XA Unspecified injury of left wrist, hand and finger(s), initial encounter (principal); W29.4XXA Contact with nail gun, initial encounter
CPT/HCPCS: 73130; 99283

== ENCOUNTER 2024-07-21 07:15 | Day surgery (SDC) | payer MEDICARE, SELFPAY ==
--- NOTE | 2024-07-21 07:23 | P.HPUD_ITS ---
Surgery/Procedure H&P Update DATE OF PROCEDURE: July 21, 2024 DATE H&P PERFORMED: 06/24/24 H&P UPDATE INFORMATION: I have reviewed H&P completed within last 30 days, I have examined patient prior to procedure, No changes to prior documentation and H&P is in [facility] EMR on date indicated PLANNED PROCEDURE: Operation Date: 07/21/24 08:20 Proposed Procedures p EGD 89538, K21.9(Not Applicable) - Adonay Meeks MD
[2024-07-21 07:31] VITALS: BMI 32.8
[2024-07-21] MEDS: sodium chloride 0.9% 1,000 ML 30 ML IV (07:34)
[2024-07-21 07:35] VITALS: BP 149/89; PULSE 63; RESP 18; TEMP 36.1; O2SAT 96
[2024-07-21 07:43] LABS: Glucose Point of Care 126 mg/dL (70-110)
--- NOTE | 2024-07-21 07:44 | ANES.PREANE2 ---
Pre-Anesthetic Assessment Height/Weight: Height 1.75 m Weight 100.698 kg Temp Pulse Resp BP Pulse Ox O2 Del Method 97.0 F L 63 18 149/89 96 Room Air 07/21/24 07:35 07/21/24 07:35 07/21/24 07:35 07/21/24 07:35 07/21/24 07:35 07/21/24 07:35 Preop Diagnosis: GERD Operation Date: 07/21/24 08:20 Proposed Procedures p EGD 45712, K21.9(Not Applicable) - Adonay Meeks MD Familial anesthetic complications: none Was Beta Isis taken within 24 hours: Yes Last intake: Intake Last Liquid Date 07/20/24 Last Liquid Time 21:00 Last Solid Date 07/20/24 Social No alcohol and No tobacco Exam alert, oriented x 3, clear to auscultation bilaterally and regular rate & rhythm Airway Submandibular: within normal limits Cervical ROM: within normal limits Mallampati: Class II Dentition: full Pulmonary None reported CV/HEM Hypertension Cardiomyopathy reduced EF patient reports improvement in cardiac function. see labs. None reported Hepatic None reported GI None reported Metabolic Diabetes Mellitus (type 2, non-insulin dependent.) Musc/skel None reported Neuropsych Neuropathy Anesthetic Plan ASA status: 3 Anesthesia: MAC Medications/Allergies Home Medications Medication Instructions Recorded Confirmed Last Taken Type amlodipine 2.5 mg tablet 5 mg PO DAILY 03/24/21 07/16/24 07/21/24 History hydrochlorothiazide 25 mg tablet 25 mg PO DAILY 03/24/21 07/16/24 07/20/24 History losartan 100 mg tablet 100 mg PO DAILY 03/24/21 07/16/24 07/20/24 History multivitamin 1 tab PO DAILY 03/24/21 07/16/24 07/20/24 History pantoprazole 40 mg tablet,delayed 40 mg PO DAILY 03/24/21 07/16/24 07/20/24 History release hydrocortisone 2.5 % topical cream 1 applic VT QID 10 days #30 grams 06/15/22 07/21/24 Unknown Rx with perineal applicator (Anusol-HC) allopurinol 100 mg tablet 300 mg PO DAILY 04/08/24 07/16/24 07/20/24 History epinephrine 0.3 mg/0.3 mL 0.3 mg IM Q4H PRN Allergic Symptoms 04/08/24 07/21/24 Unknown History injection, auto-injector (EpiPen) hydroxyzine HCl 25 mg tablet 12.5 mg PO QID PRN Anxiety 04/08/24 07/21/24 Unknown History ibuprofen-diphenhydramine citrate 2 tab PO QPM 04/08/24 07/16/24 07/20/24 History 200 mg-38 mg tablet (Ibuprofen PM) semaglutide 2 mg/dose (8 mg/3 mL) 2 mg SUBCUT .WEEKLY 04/08/24 07/16/24 07/13/24 History subcutaneous pen injector (Ozempic) cetirizine 10 mg tablet 10 mg PO QPM 07/16/24 07/16/24 07/20/24 History dapagliflozin propanediol 10 mg 5 mg PO DAILY 07/16/24 07/16/24 07/19/24 History tablet (Farxiga) metoprolol succinate 25 mg 12.5 mg PO DAILY 07/16/24 07/16/24 07/21/24 History tablet,extended release 24 hr Allergies Allergy/AdvReac Type Severity Reaction Status Date / Time metformin Allergy Severe Unknown Verified 07/21/24 07:25 Alpha-Gal Allergy ADR-Abdominal Verified 07/21/24 07:25 (Fjroqkqhs-Msent-7,3-Gala Pain prednisone Allergy Unknown Verified 07/21/24 07:25 Current Medications Generic Name Dose Route Start Last Admin Trade Name Freq PRN Reason Stop Dose Admin Sodium Chloride 1,000 mls @ 30 mls/hr 07/21/24 07:30 07/21/24 07:34 Sodium Chloride 0.9% IV 07/22/24 07:29 30 mls/hr .Q24H TIFFANY Administration PFSH Anesthesia Medical History (Updated 07/05/24 @ 00:00 by FELIPA Green) Mild cognitive impairment Surgical History (Updated 06/24/24 @ 13:05 by MOSHE Escobar) Hx of colonoscopy 06/15/22 Family History Mother Diabetes Psychiatric illness Father Psychiatric illness Social History Smoking and tobacco/nicotine status: never used tobacco/nicotine Data Anesthesia Cardiac Studies: Echocardiogram 01/09/24
[2024-07-21 08:27] VITALS: BP 112/79; PULSE 70; RESP 14; TEMP 36.2; O2SAT 94
[2024-07-21 08:42] VITALS: BP 118/78; PULSE 61; RESP 18; O2SAT 97
--- NOTE | 2024-07-21 09:00 | ANE.PACU2 ---
Inpatient post-anesthesia follow up: Airway intact: Yes Vital signs: Temperature 97.1 F Pulse Rate 61 Respiratory Rate 18 Blood Pressure 118/78 Pulse Oximetry 97 Oxygen Delivery Me thod Room Air Oxygen Flow Rate 4 Fraction of Inspir ed Oxygen Hydration adequate: Yes Nausea and vomiting: No Pain level: 1 Mental status: Baseline
== END 2024-07-21 09:00 | disposition home or self-care (01) ==
PROVIDERS: PCP Family Medicine; Visit Provider Surgery
PROC: 0DJ08ZZ Inspection of Upper Intestinal Tract, Via Natural or Artificial Opening Endoscopic (ICD-10-PCS; CPT 43235; principal; 2024-07-21 08:20)
DX: K21.00 Gastro-esophageal reflux disease with esophagitis, without bleeding (principal); K29.50 Unspecified chronic gastritis without bleeding; I10 Essential (primary) hypertension; E78.5 Hyperlipidemia, unspecified; E11.9 Type 2 diabetes mellitus without complications; K44.9 Diaphragmatic hernia without obstruction or gangrene; K29.80 Duodenitis without bleeding
CPT/HCPCS: 36416; 43239; 82962; 88305; 88342; J2704; J7030

== ENCOUNTER 2024-07-22 06:58 | Emergency (ER) | payer MEDICARE, SELFPAY ==
[2024-07-22 07:07] VITALS: BP 144/91; PULSE 73; RESP 16; TEMP 36.6; O2SAT 99; BMI 33.2
[2024-07-22 07:15] VITALS: BP 144/91; PULSE 73; RESP 16; TEMP 36.6; O2SAT 99
--- NOTE | 2024-07-22 07:17 | XRR_ITS ---
PROCEDURE INFORMATION: Exam: XR Chest Exam date and time: 07/22/2024 7:34 AM Age: 69 years old Clinical indication: Cough TECHNIQUE: Imaging protocol: Radiologic exam of the chest. Views: 1 view. COMPARISON: CR XR chest 1V portable [id number] 02/05/2020 10:31 PM FINDINGS: Lungs: Unremarkable. No consolidation. Pleural spaces: Unremarkable. No pleural effusion. No pneumothorax. Heart/Mediastinum: Unremarkable. No cardiomegaly. Bones/joints: Unremarkable. XR/XR chest 1V portable [id number] IMPRESSION: No acute findings.
--- NOTE | 2024-07-22 07:20 | W.ED.URI ---
HPI - URI/Sore Throat General: Chief Complaint: Upper Respiratory Infection Stated Complaint: congestion, feels like its getting worst Time Seen by Provider: 07/22/24 06:59 Source: patient Mode of arrival: ambulatory Limitations: no limitations History of Present Illness: 69-year-old male states he has had cough congestion that started overnight. He states that his cough has been nonproductive he has had nasal congestion he states he had bronchitis in the past and this feels similar denies any fevers denies any vomiting diarrhea denies any pain Associated symptoms: Reports nasal congestion; Deny abdominal pain, chills, chest pain, diarrhea, fever(s), headache(s), nausea or vomiting Related Data Home Medications Medication Instructions Recorded Confirmed hydrochlorothiazide 25 mg tablet 25 mg PO DAILY 03/24/21 07/22/24 losartan 100 mg tablet 100 mg PO DAILY 03/24/21 07/22/24 pantoprazole 40 mg tablet,delayed 40 mg PO DAILY 03/24/21 07/22/24 release epinephrine 0.3 mg/0.3 mL 0.3 mg IM Q4H PRN Allergic Symptoms 04/08/24 07/22/24 injection, auto-injector (EpiPen) semaglutide 2 mg/dose (8 mg/3 mL) 2 mg SUBCUT .WEEKLY 04/08/24 07/22/24 subcutaneous pen injector (Ozempic) cetirizine 10 mg tablet 10 mg PO QPM 07/16/24 07/22/24 dapagliflozin propanediol 10 mg 5 mg PO DAILY 07/16/24 07/22/24 tablet (Farxiga) metoprolol succinate 25 mg 12.5 mg PO DAILY 07/16/24 07/22/24 tablet,extended release 24 hr allopurinol 300 mg tablet 300 mg PO DAILY 07/22/24 07/22/24 amlodipine 5 mg tablet 5 mg PO BID 07/22/24 07/22/24 Allergies Allergy/AdvReac Type Severity Reaction Status Date / Time metformin Allergy Severe Unknown Verified 07/22/24 07:07 Alpha-Gal Allergy ADR-Abdominal Verified 07/22/24 07:07 (Iroxilipu-Kasha-4,3-Gala Pain prednisone Allergy ADR-Anxiety Verified 07/22/24 07:07 Review of Systems Const: Denies: fever(s), chills, body aches or change in appetite ENMT: Reports: nasal congestion; Denies: throat pain or dental pain Card: Denies: chest pain Resp: Reports: dyspnea and non-productive cough GI: Denies: abdominal pain, nausea, vomiting or diarrhea : Denies: dysuria Musc: Denies: neck pain or back pain Skin/Breast: Denies: rash Neuro: Denies: headache(s) PFSH ED PFSH: Medical History Mild cognitive impairment Surgical History Hx of colonoscopy 06/15/22 Family History Mother Diabetes Psychiatric illness Father Psychiatric illness Social History Smoking and tobacco/nicotine status: never used tobacco/nicotine Physical Exam Const: COMMON NORMALS: no acute distress, patient oriented x3 and healthy appearing HENMT: COMMON NORMALS: normocephalic and atraumatic HEAD & SCALP: normocephalic and atraumatic Eye: COMMON NORMALS: conjunctivae normal CONJUNCTIVA: Yes conjunctivae normal Neck/C-Spine: COMMON NORMALS: full ROM and supple Chest: COMMONS NORMALS: normal inspection of the chest and normal palpation of entire chest wall Resp: COMMON NORMALS: normal respiratory effort, No retractions, No use of accessory muscles and clear to auscultation bilaterally AUSCULTATION: clear to auscultation bilaterally Cardio: COMMON NORMALS: regular rate, regular rhythm and No murmurs present (Cardio) RATE: regular rate RHYTHM: regular rhythm GI: COMMON NORMALS: Normal to inspection, nondistended, normoactive bowel sounds present, Soft to palpation, non-tender and no masses PALPATION: Yes Soft to palpation Extremity: COMMON NORMALS: normal to inspection and full ROM Neuro: COMMON NORMALS: patient oriented x3, moves all extremities and no focal motor deficits Psych: COMMON NORMALS: mental status grossly normal, Normal thought process present and cooperative THOUGHT PROCESS: Normal thought process present Skin: COMMON NORMALS: no rashes or lesions noted and no wounds GENERAL SKIN EXAM: no rashes or lesions noted Course Vital Signs: Vital signs: Vital Signs Temperature 97.9 F 07/22/24 07:15 Pulse Rate 73 07/22/24 07:15 Respiratory Rate 16 07/22/24 07:15 Blood Pressure 144/91 07/22/24 07:15 Pulse Oximetry 99 07/22/24 07:15 MDM - URI/Sore Throat Medical Decision Making Patient presents here with upper respiratory infection x-ray here is negative no signs of pneumonia COVID flu RSV is pending and given breathing treatment steroid he feels improved here he is follow-up with PCP and return if worsening. Medical Records I reviewed the patient's medical records. All radiology interpretation(s) finalized by discharge Discharge Plan Discharge Condition: Stable Prescriptions: No Action losartan 100 mg tablet 100 mg PO DAILY hydrochlorothiazide 25 mg tablet 25 mg PO DAILY pantoprazole 40 mg tablet,delayed release (DR/EC) 40 mg PO DAILY Ozempic 2 mg/dose (8 mg/3 mL) pen injector 2 mg SUBCUT .WEEKLY Rx Instructions: 2mg once weekly epinephrine [EpiPen] 0.3 mg/0.3 mL auto-injector 0.3 mg IM Q4H PRN (Reason: Allergic Symptoms) cetirizine 10 mg tablet 10 mg PO QPM dapagliflozin propanediol [Farxiga] 10 mg tablet 5 mg PO DAILY metoprolol succinate 25 mg tablet extended release 24 hr 12.5 mg PO DAILY Rx Instructions: take 1/2 tab daily amlodipine 5 mg tablet 5 mg PO BID allopurinol 300 mg tablet 300 mg PO DAILY Referrals: Howie Santiago MD [Primary Care Provider] - Coding Level of Care Code ED Burn Center Nurse for Oscar Aguayo
[2024-07-22] MEDS: dexamethasone 10 mg/mL INJ IM (07:29)
[2024-07-22 07:40] VITALS: PULSE 75; RESP 16; O2SAT 98
[2024-07-22] MEDS: albuterol 8 gm MDI 2 PUFF INHALATION (07:40)
[2024-07-22 08:13] VITALS: BP 122/78; PULSE 75; O2SAT 98
[2024-07-22 08:21] LABS: Covid PCR NEGATIVE (Negative); Influenza A NEGATIVE (Negative); Influenza B NEGATIVE (Negative); Respiratory Syncytial Virus Ce NEGATIVE (Negative)
== END 2024-07-22 08:14 | disposition home or self-care (01) ==
PROVIDERS: Emergency Provider Emergency Medicine; PCP Family Medicine
DX: R05.9 Cough, unspecified (principal)
CPT/HCPCS: 0241U; 71045; 94640; 96372; 99284; J1100; J3535

== ENCOUNTER → 2024-08-05 10:14 | Outpatient (BNVA) | payer MEDICARE, SELFPAY | PROVIDERS: PCP Family Medicine; Visit Provider Surgery | DX: Z09 Encounter for follow-up examination after completed treatment for conditions other than malignant neoplasm (principal) | CPT/HCPCS: 99213 ==

== ENCOUNTER → 2024-10-06 13:58 | Outpatient (BNVA) | payer MEDICARE, SELFPAY | PROVIDERS: PCP Family Medicine; Visit Provider Internal Medicine Cardiovascular Disease | DX: I42.2 Other hypertrophic cardiomyopathy (principal); I10 Essential (primary) hypertension; R00.1 Bradycardia, unspecified | CPT/HCPCS: 99214 ==